=== PATIENT | female | born 1985 | race Two or more races ===

== ENCOUNTER 2016-12-16 18:40 | Inpatient (IN) | payer OTHER ==
[2016-12-16 22:15] LABS: BASOPHIL 0.3 % (0-2.0); EOSINOPHIL 0.7 % (0-4.5); MCH 29.8 pg (25.7-33.7); MCHC 34.1 g/dl (32.0-36.0); MEAN CELL VOLUME 87.5 fl (80-96); MEAN PLT VOLUME 9.7 fl (7.5-11.1); NEUTROPHILS 68.6 % (42.8-82.8); PLATELET COUNT 154 K/MM3 (134-434); RDW 14.4 % (11.6-15.6); WHITE BLOOD COUNT 10.9 K/mm3 (4.0-10.0)
[2016-12-16 22:36] VITALS: BMI 27.4
[2016-12-16 22:36] LABS: ANION GAP 15 (8-16); CO2 23 mmol/L (21-32); CREATININE 0.4 mg/dL (0.55-1.02); GLUCOSE,RANDOM 87 mg/dL (74-106)
[2016-12-16 22:37] LABS: INR 0.98 (0.82-1.09); PROTHROMBIN TIME (PATIENT) 10.8 SEC (9.98-11.88)
[2016-12-16 22:40] LABS: ACTIVATED PTT 25.2 SECONDS (26.9-34.4)
[2016-12-16] MEDS ORDERED: ELECTROLYTE-148 SOLN 500 ML IV ONE (23:00)
[2016-12-16] MEDS ORDERED: FENTANYL/BUPIVACAINE/NS/PF - PCEA - 50 ML DISP.SYRIN EP SCH (23:45)
--- NOTE | 2016-12-17 00:12 | HP ---
Past Medical History - Primary Care Physician PCP:: Shorty Foley - Admission Chief Complaint: 31yo P2 with at [facility] 39w5d admitted at [facility] 39w5d with spontaneous labor. History of Present Illness: Pt presented in spontaneous labor and progressed from 3cm to 6cm of cervical dilation. 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: No: Alzheimer's, CVA, Dementia, Migraine, Multiple Sclerosis, Peripheral Neuropathy, Parkinson's, Seizure, Syncope, TIA, Vertigo, Other Cardiovascular: No: AFIB, Aneurysm, Aortic Insufficiency, Aortic Stenosis, CAD, CHF, Deep Vein Thrombosis, HTN, Hyperlipdemia, [place], Mitral Insufficiency, Mitral Stenosis, Murmur, Pulmonary Hypertension, Other Pulmonary: No: Asthma, Bronchitis, Cancer, COPD, O2 Dependent, Pneumonia, Previously Intubated, Pulmonary Embolus, Pulmonary Fibrosis, Sleep Apnea, Other Gastrointestinal: No: Ascites, Cancer, Constipation, Crohn's Disease, Diverticulitis, Diverticulosis, Esophageal Varices, Gastritis, GERD, GI Bleed, Hemorrhoids, Hiatal Hernia, Inflamatory Bowel Disease, Irritable Bowel Disease, Pancreatitis, Peptic Ulcer Disease, Ulcerative Colitis, Other Hepatobiliary: No: Cirrhosis, Cholelithiasis, Cholecystitis, Choledocholithiasis , Hepatitis A, Hepatitis B, Hepatitis C, Other Renal/: No: Renal Failure, Renal Inusuff, BPH, Cancer, Hematuria, Hemodialysis , Neurogenic Bladder, Renal Calculi, UTI, Other ...: 4 ...Para: 2 ( x 2) ...Term: 2 ...: 0 ...Spon : 1 ...Induced : 0 ...Multiple Gestation: 0 ...LMP: 03/07/16 ... Weeks Gestation by Dates: 39.1 ...EDC by Dates: 12/22/16 ...EDC by Sono: 12/19/16 Heme/Onc: No: Anemia, B12 Deficiency, Bleeding Disorder, Cancer, Current Chemotherapy, Current Radiation Therapy, Hemochromatosis, Hypercoaguable State, Myeloproliferative Synd, Sickle Cell Disease, Sickle Cell Trait, Thrombocytopenia, Other Infectious Disease: No: AIDS, C-Diff, Herpes Zoster, HIV, MRSA, STD's, Tuberculosis, VREF, Other Psych: No: Addictions, Anxiety, Bipolar, Depression, Panic, Psychosis, Schizophrenia, Other Musculoskeletal: Yes: Osteoarthritis Rheumatology: No: Fibromyalgia, Gout, Lupus, Rheumatoid Arthritis, Sarcoidosis, Vasculitis, Other ENT: No: Allergic Rhinitis, Sinusitis, Other Endocrine: No: Coke's Disease, [place]'s Disease, Diabetes Insipidus, Diabetes Mellitus, Hyperparathyroidism, Hyperthyroidism, Hypothyroidism, Osteopenia, SIADH, Other Dermatology: No: Basal Cell, Cellulitis, Eczema, Melanoma, Psoriasis, Squamous Cell, Other - Past Surgical History Past Surgical History: Yes: None Hx Myomectomy: No Hx Transabdominal Cerclage: No Additional Surgical History: D&C - Smoking History Smoking history: Never smoked Have you smoked in the past 12 months: No Aproximately how many cigarettes per day: 0 - Alcohol/Substance Use Hx Alcohol Use: No History of Substance Use: reports: None - Social History Usual Living Arrangement: Yes: With Spouse, With Child ADL: Independent Home Medications - Allergies Allergies/Adverse Reactions: Allergies Allergy/AdvReac Type Severity Reaction Status Date / Time No Known Drug Allergies Allergy Verified 11/13/16 00:42 - Home Medications Home Medications: Ambulatory Orders Cholecalciferol (Vitamin D3) [Vitamin D -] 1 tab PO DAILY 08/31/16 Pnv95/Ferrous Fumarate/FA [ Vitamin Tablet] 1 each PO DAILY 08/31/16 Family Disease History - Family Disease History Other Family History: Aunt- uterine, ovarian ca Review of Systems - Review of Systems Constitutional: reports: Other (labor) Eyes: reports: No Symptoms HENT: reports: No Symptoms Neck: reports: No Symptoms Cardiovascular: reports: No Symptoms Respiratory: reports: No Symptoms Gastrointestinal: reports: No Symptoms Genitourinary: reports: No Symptoms Breasts: reports: No Symptoms Reported Musculoskeletal: reports: No Symptoms Integumentary: reports: No Symptoms Neurological: reports: No Symptoms Endocrine: reports: No Symptoms Hematology/Lymphatic: reports: No Symptoms Psychiatric: reports: No Symptoms Pain Intensity: 8 Physical Exam - Maternity Vital Signs: Vital Signs Temperature 98.4 F 12/16/16 21:35 Pulse Rate 93 H 12/16/16 21:35 Respiratory Rate 20 12/16/16 21:35 Blood Pressure 118/75 12/16/16 21:35 O2 Sat by Pulse Oximetry (%) Constitutional: Yes: Well Nourished, Calm, Other (labor) Eyes: Yes: WNL, Conjunctiva Clear HENT: Yes: WNL, Atraumatic, Normocephalic Neck: Yes: WNL, Supple, Trachea Midline Cardiovascular: Yes: WNL, Regular Rate and Rhythm Lungs: Clear to auscultation, Normal air movement Breast(s): Yes: WNL - Abdominal Exam/OB Fundal Height: 40 Number of Fetuses: Single Presentation: Vertex Contractions: Yes Regularity: Regular (q4min) Intensity: Mod/Strong Heart Rate (range): 130 Heart Rate Location: Midline Category: I Accelerations: Non-Uniform Decelerations: None - Vaginal Exam/OB Vaginal Bleediing: No Speculum Exam: No Dilatation (cm): 6 Effacement (%): 90 Amniotic Membrane Status: Ruptured (AROM) Amniotic Fluid: Yes: Clear Presentation: Vertex/Position Station: -2 - Physical Exam Musculoskeletal: Yes: WNL Extremities: Yes: WNL Edema: No Integumentary: Yes: WNL Deep Tendon Reflex Grade: Normal +2 ...Motor Strength: WNL Psychiatric: Yes: WNL, Alert, Oriented - Labs Lab Results: CBC, BMP 12/16/16 22:10 12/16/16 22:10 Hemorrhage Risk Assessment - Risk Factors Medium Risk Factors: Yes: None High Risk Factors: Yes: None Risk Score: 1 Risk Level: Medium Risk Imaging - Results Ultrasound: Report Reviewed Assessment/Plan 31yo P2 with at A 39w5d admitted at [facility] 39w5d with spontaneous labor. Pt requested pain management with epidural and the epidural was given. Fetus does not require intervention. labor progressing spontaneously. Plan to monitor labor progress
[2016-12-17] MEDS ORDERED: DEXTROSE 5%-LACTATED RINGERS 1,000 ML IV SCH (00:15)
[2016-12-17 00:21] LABS: HIV 1 & 2 AB NEGATIVE; HIV 1 AGp24 NEGATIVE
[2016-12-17] MEDS ORDERED: METHYLERGONOVINE MALEATE 0.2 MG/1 ML AMP IM PRN (01:14)
[2016-12-17] MEDS ORDERED: BENZOCAINE 28 GM HEMORRHOIDAL OINTMENT TP PRN (01:14)
[2016-12-17] MEDS ORDERED: BENZOCAINE 20% 57 GM BOTTLE TP PRN (01:14)
[2016-12-17] MEDS ORDERED: WITCH HAZEL 50% (TUCKS) 40 PAD/JAR PAD TP PRN (01:14)
[2016-12-17] MEDS ORDERED: BISACODYL 10 MG SUPP.RECT RC PRN (01:14)
[2016-12-17] MEDS ORDERED: D5W-LR W/ 20 UNITS OXYTOCIN 1,000 ML IV SCH (01:15)
[2016-12-17] MEDS: IBUPROFEN 600 MG TABLET (FP) PO PRN ×4 (04:30→22:06)
[2016-12-17] MEDS: ACETAMINOPHEN 325 MG TABLET (FP) PO PRN ×4 (04:32→22:07)
[2016-12-17] MEDS: PRENATAL VITAMINS W/ FOLIC ACID TABLET (FP) PO SCH (09:40)
[2016-12-18] MEDS: IBUPROFEN 600 MG TABLET (FP) PO PRN ×2 (04:15→21:25)
[2016-12-18] MEDS: ACETAMINOPHEN 325 MG TABLET (FP) PO PRN ×2 (04:48→21:28)
[2016-12-18 08:21] LABS: BASOPHIL 0.6 % (0-2.0); EOSINOPHIL 1.4 % (0-4.5); MCH 29.5 pg (25.7-33.7); MCHC 33.5 g/dl (32.0-36.0); MEAN CELL VOLUME 87.9 fl (80-96); MEAN PLT VOLUME 9.7 fl (7.5-11.1); PLATELET COUNT 153 K/MM3 (134-434); RDW 14.4 % (11.6-15.6); WHITE BLOOD COUNT 9.9 K/mm3 (4.0-10.0)
[2016-12-18] MEDS: PRENATAL VITAMINS W/ FOLIC ACID TABLET (FP) PO SCH (09:18)
[2016-12-18] MEDS ORDERED: DIPHTH,PERTUSS(ACELL),TET 0.5 ML DISP.SYRIN IM ONE (10:00)
--- NOTE | 2016-12-18 10:54 | DS ---
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 Signs: Vital Signs Temperature 97.4 F L 12/18/16 08:46 Pulse Rate 71 12/18/16 08:46 Respiratory Rate 20 12/18/16 08:46 Blood Pressure 106/56 12/18/16 08:46 O2 Sat by Pulse Oximetry (%) 95 12/16/16 23:55 Constitutional: Yes: Well Nourished, No Distress, Calm Eyes: Yes: WNL, Conjunctiva Clear, EOM Intact HENT: Yes: WNL, Atraumatic, Normocephalic Neck: Yes: WNL, Supple, Trachea Midline Cardiovascular: Yes: WNL, Regular Rate and Rhythm Respiratory: Yes: WNL, Regular, CTA Bilaterally Gastrointestinal: Yes: Normal Bowel Sounds, Soft ...Rectal Exam: Yes: Deferred Renal/: Yes: WNL Pelvis: Yes: WNL External Genitalia: Yes: Normal Internal Exam Deferred: Yes ....Post : Yes: Uterus firm, Uterus non-tender, Slight lochia rubra Breast(s): Yes: WNL Musculoskeletal: Yes: WNL Extremities: Yes: WNL Edema: Yes Edema: LLE: Trace, RLE: Trace Integumentary: Yes: WNL Neurological: Yes: WNL, Alert, Oriented ...Motor Strength: WNL Psychiatric: Yes: WNL, Alert, Oriented Labs: CBC, BMP 12/18/16 08:12 12/16/16 22:10 Delivery - Delivery Vaginal Delivery: No Problems, Spontaneous Type of Anesthesia: Local, Epidural Episiotomy/Laceration: Midline, Perineal Extension/lac, 2nd degree EBL (cc): 300 Delivery, Single - Stages of Labor Date 1st Stage Initiatied: 12/16/16 Time 1st Stage Initiated: 18:00 Date 2nd Stage Initiated: 12/17/16 Time 2nd Stage Initiated: 00:30 Date of Delivery: 12/17/16 Time of Delivery: 00:53 Time Placenta Delivered: 01:00 Placenta: Yes: Spontaneous, Normal Configuration - 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 Present: No Infant Gender: Female Weight: 3.657 kg Position: Left, OA Total Hours ROM (Hrs/Mins): 1h3m - 1 Minute Total Score: 9 5 Minutes Total Score: 9 - [place] Feeding Plan Initial Plan: Elected not to breastfeed exclusively throughout hospitalization Benefits of Exclusively reinforced: Yes Discharge Summary Reason For Visit: LABOR ADMIT No complaints Procedures: Principal: Hospital Course: Normal recovery Condition: Good - Instructions Diet, Activity, Other Instructions: Physical activity Resume your normal everyday activity as tolerated no heavy lifting or exercise until seen by your surgeon. You may walk unlimited wilfredo of and climb stairs. You may resume driving the car when you feel safe and comfortable behind the wheel. No sexual activity as instructed. Wound care If you have a bandage, leave it on, and keep dry for 48-72 hours. After that time discard the outer bandage. If they are tapes on the skin under the out of bandage leave them in place. They will peel off in the next 7 to 10 days. Do Not Peel them off. You may shower the day after surgery. If there are tapes present on the skin, you may shower over them. Diet There are no dietary restrictions. Eat healthy, high-fiber foods. Drink 6 to 8 glasses of liquid each day. This will assist in keeping your bowels are regular. Pain management You may take Tylenol or acetaminophen or Ibuprofen (for example, Motrin, Advil etc.) from my pain prescription medication is ordered should be taken as prescribed for moderate to severe pain. Call MD for any of the following: Severe pain not relieved by medication Fever of 101 or higher Excessive bleeding or drainage on dressing Inability to urinate Referrals: Elijah Corona MD [Staff Physician] - Disposition: HOME - Home Medications Comprehensive Discharge Medication List: Ambulatory Orders Cholecalciferol (Vitamin D3) [Vitamin D -] 1 tab PO DAILY 08/31/16 Pnv95/Ferrous Fumarate/FA [ Vitamin Tablet] 1 each PO DAILY 08/31/16
[2016-12-18] MEDS ORDERED: SENNOSIDES/DOCUSATE COMBO (SENNA PLUS) TABLET (UD) PO PRN (22:00)
[2016-12-19] MEDS: IBUPROFEN 600 MG TABLET (FP) PO PRN (06:36)
[2016-12-19] MEDS: ACETAMINOPHEN 325 MG TABLET (FP) PO PRN (06:38)
[2016-12-19 08:21] VITALS: BP 106/64; PULSE 71; TEMP 98.5
--- NOTE | 2016-12-19 08:27 | PN ---
Post Progress Note - Subjective Subjective: 31 yo P3 now s/p no complains, voiding, ambulating, tolerating regular diet Post Day: 2 Type of Delivery: Vital Signs: Vital Signs Temperature 98.5 F 12/19/16 08:00 Pulse Rate 71 12/19/16 08:00 Respiratory Rate 18 12/19/16 08:00 Blood Pressure 106/64 12/19/16 08:00 O2 Sat by Pulse Oximetry (%) 95 12/16/16 23:55 Breast Exam: Yes: Soft Uterus: Yes: Fundus Firm Abdomen/GI: Yes: Abdomen soft Lochia: Yes: Rubra Lochia, amount: Small Extremities: Yes: Calves non-tender Perineum: Yes: Laceration - Labs Labs: CBC WBC 9.9 K/mm3 (4.0-10.0) 12/18/16 08:12 RBC 4.38 M/mm3 (3.60-5.2) 12/18/16 08:12 Hgb 12.9 GM/dL (10.7-15.3) 12/18/16 08:12 Hct 38.5 % (32.4-45.2) 12/18/16 08:12 MCV 87.9 fl (80-96) 12/18/16 08:12 MCH 29.5 pg (25.7-33.7) 12/18/16 08:12 MCHC 33.5 g/dl (32.0-36.0) 12/18/16 08:12 RDW 14.4 % (11.6-15.6) 12/18/16 08:12 Plt Count 153 K/MM3 (134-434) 12/18/16 08:12 MPV 9.7 fl (7.5-11.1) 12/18/16 08:12 Neutrophils % 67.0 % (42.8-82.8) 12/18/16 08:12 Lymphocytes % 25.5 % (8-40) 12/18/16 08:12 Monocytes % 5.5 % (3.8-10.2) 12/18/16 08:12 Eosinophils % 1.4 % (0-4.5) D 12/18/16 08:12 Basophils % 0.6 % (0-2.0) 12/18/16 08:12 Assessment/Plan 31 yo P3 s/p Doing well VSS, Afibrile H/H stable D/c today warned not to have anything vaginally for 6 weeks Return to the office in 6 weeks
[2016-12-19] MEDS: PRENATAL VITAMINS W/ FOLIC ACID TABLET (FP) PO SCH (09:31)
== END 2016-12-19 12:00 | disposition home or self-care (01) | DRG 560 ==
LOC: JDEL 18:40 → JLDR 21:20 → J3W 12-17 03:00
PROVIDERS: ADMIT Obstetrics & Gynecology; ATTEND Obstetrics & Gynecology
PROC: 10E0XZZ Delivery of Products of Conception, External Approach (ICD-10-PCS; principal; 2016-12-17)
PROC: 0W8NXZZ Division of Female Perineum, External Approach (ICD-10-PCS; 2016-12-17)
PROC: 0KQM0ZZ Repair Perineum Muscle, Open Approach (ICD-10-PCS; 2016-12-17)
DX: O70.1 Second degree perineal laceration during delivery (principal); Z3A.39 39 weeks gestation of pregnancy; Z37.0 Single live birth
CPT/HCPCS: 36415; 59409; 80048; 85025; 85610; 85730; 86593; 86850; 86900; 86901; 87389; 90715

== ENCOUNTER 2022-07-20 04:17 | Day surgery (SDC) | payer OTHER ==
[2022-07-17 16:59] VITALS: BMI 25.8
[2022-07-20] MEDS ORDERED: MIDAZOLAM HCL 2 MG/2 ML SINGLE DOSE VIAL ONE (15:22)
[2022-07-20] MEDS ORDERED: PROPOFOL 20 ML ONE (15:50)
[2022-07-20] MEDS ORDERED: oxyCODONE HCL 5 MG TABLET PO PRN (15:52)
[2022-07-20] MEDS ORDERED: IBUPROFEN 800 MG/8 ML IJ IVPB PRN (15:52)
[2022-07-20] MEDS ORDERED: ONDANSETRON 4 MG/2 ML VIAL IVPUSH PRN (15:52)
[2022-07-20] MEDS ORDERED: IBUPROFEN 600 MG TABLET (FP) PO PRN (15:52)
[2022-07-20] MEDS ORDERED: ELECTROLYTE-148 SOLN 1,000 ML IV SCH (16:00)
[2022-07-20 19:17] VITALS: RESP 18
[2022-07-20 19:25] VITALS: BP 110/70; PULSE 78; TEMP 97.9
== END 2022-07-20 18:55 | disposition home or self-care (01) ==
LOC: JASU-SURG 04:17
PROVIDERS: ATTEND Obstetrics & Gynecology
PROC: 0UPD8HZ Removal of Contraceptive Device from Uterus and Cervix, Via Natural or Artificial Opening Endoscopic (ICD-10-PCS; 2022-07-20)
PROC: 0UBC8ZZ Excision of Cervix, Via Natural or Artificial Opening Endoscopic (ICD-10-PCS; principal; 2022-07-20 15:00)
DX: N93.9 Abnormal uterine and vaginal bleeding, unspecified (principal); N84.1 Polyp of cervix uteri
CPT/HCPCS: 88305-TC; 94760